=== PATIENT | female | born 1975 | race American Indian/Alaskan Native ===

== ENCOUNTER 2017-06-20 11:38 | Emergency (ER) | payer BC, OTHER ==
--- NOTE | 2017-06-20 12:31 | EDM.PDOC ---
ED HPI GENERAL MEDICAL PROBLEM - General Chief Complaint: Abdominal Pain Stated Complaint: ABDOMINAL PAIN/DIARRHEA Time Seen by Provider: 06/20/17 12:31 Source of Information: Reports: Patient History Limitations: Reports: No Limitations - History of Present Illness INITIAL COMMENTS - FREE TEXT/NARRATIVE: Linda is a pleasant 42yo female presents ambulatory to ED with one week hx of abdominal pain, nausea; transitioning to 5 days of diarrhea and now vomiting x 2 days. She was on her way to [place] for vacation and the stomach pain, around the umbilicus, started. Once arriving to [place] the nausea hit. She then went to a doctor in [place] who prescribed two medications, by looking them up it looks like digestive enzymes and similar to bentyl. She feels that after taking the one similar to digestive enzymes the diarrhea. She does not feel that the other medication helped at all. Advil seems to help the discomfort as well as "not eating" however she does get hungry. No f/c/s, she has been trying to push fluids. No back pain. No urinary symptoms other than "darker" urine and decreased urinary output. Prior to this occurring she was regular with bowel habits, "every other day". No prior abdominal issues or IBS type of symptoms. No food intolerances prior other than milk but states "I know to avoid that". No one else on the trip had any abdominal problems, no exposure to stomach flu or similar problems prior to leaving on her trip. Associated symptoms: headache , worse yesterday. She has been trying to push fluids, has tried peptobismol and tums. Tums helps the heartburn which has started since vomiting. No prior symptoms of heartburn. has had vasectomy so "would be a miracle if I was ". Onset: Gradual (1 week) Duration: Intermittent Location: Reports: Abdomen Quality: Reports: Pressure, Sharp, Stabbing Severity: Moderate Improves with: Reports: Movement Worsens with: Reports: Rest, Other (eating) Associated Symptoms: Reports: Headaches (x 2 days), Nausea/Vomiting. Denies: Chest Pain, Cough, Diaphoresis, Fever/Chills, Loss of Appetite, Shortness of Breath Abdominal Pain Score (Numeric/FACES): 2 - Related Data Allergies Allergy/AdvReac Type Severity Reaction Status Date / Time No Known Allergies Allergy Verified 06/20/17 11:48 Home Meds: Home Meds amLODIPine Besylate [Amlodipine Besylate] 10 mg PO DAILY 06/20/17 [History] Past Medical History Cardiovascular History: Reports: Hypertension [employer] History: Reports: Endocrine/Metabolic History: Reports: Vitamin D Deficiency - Past Surgical History HEENT Surgical History: Reports: Myringotomy w Tube(s) Social & Family History - Family History Family Medical History: Noncontributory - Tobacco Use Smoking Status *Q: Never Smoker - Caffeine Use Caffeine Use: Reports: Coffee - Recreational Drug Use Recreational Drug Use: No ED ROS GENERAL - Review of Systems Review Of Systems: See Below Constitutional: Reports: No Symptoms. Denies: Fever, Chills, Malaise, Weakness HEENT: Reports: No Symptoms Respiratory: Reports: No Symptoms Cardiovascular: Reports: No Symptoms GI/Abdominal: Reports: Abdominal Pain, Diarrhea, Nausea, Vomiting (x 2 days). Denies: Black Stool, Bloody Stool, Constipation, Decreased Appetite, Hematemesis , Hematochezia, Melena : Reports: No Symptoms, Other (decreased UO) Musculoskeletal: Reports: No Symptoms Skin: Reports: No Symptoms Neurological: Reports: No Symptoms Hematologic/Lymphatic: Reports: No Symptoms ED EXAM, GI/ABD - Physical Exam Exam: See Below Exam Limited By: No Limitations General Appearance: Alert, WD/WN, No Apparent Distress, Other (talkative, resting comfortably on stretcher) Eyes: Bilateral: Normal Appearance, EOMI Ears: Normal External Exam, Hearing Grossly Normal Nose: Normal Inspection Throat/Mouth: Normal Inspection, Normal Lips, Normal Teeth, Normal Voice Head: Atraumatic, Normocephalic Neck: Normal Inspection Respiratory/Chest: No Respiratory Distress, Lungs Clear, Normal Breath Sounds Cardiovascular: Normal Peripheral Pulses, Regular Rate, Rhythm, No Edema, No Murmur GI/Abdominal Exam: Soft, No Organomegaly, No Distention, No Mass, Tender ( epitastric and surrounding umbilicus). No: Guarding, Rigid, Rebound, Hepatomegaly, Splenomegaly (Female) Exam: Deferred Rectal (Female) Exam: Deferred Back Exam: Normal Inspection Extremities: Normal Inspection, Normal Capillary Refill Neurological: Alert, Oriented, CN II-XII Intact, Normal Cognition Psychiatric: Normal Affect, Normal Mood Skin Exam: Warm, Dry, Intact Course - Vital Signs Last Recorded V/S: Last Vital Signs Temp 97.4 F 06/20/17 11:49 Pulse 75 06/20/17 11:49 Resp 18 06/20/17 11:49 BP 143/82 H 06/20/17 11:49 Pulse Ox 100 06/20/17 11:49 - Orders/Labs/Meds Orders: Active Orders 24 hr Category Date Time Status Abdomen 2V AP Flat Upright [CR] Stat Exams 06/20/17 14:00 Taken Potassium Chloride [Klor-Con M20] Med 06/20/17 14:24 Once 40 meq PO ONETIME ONE Medication Orders Potassium Chloride (Klor-Con M20) 40 meq PO ONETIME ONE Stop: 06/20/17 14:25 Labs: Laboratory Tests 06/20/17 06/20/17 06/20/17 Range/Units 13:10 13:10 13:10 WBC 5.39 (3.98-10.04) K/mm3 RBC 4.75 (3.98-5.22) M/mm3 Hgb 13.9 (11.2-15.7) gm/L Hct 40.1 (34.1-44.9) % MCV 84.4 (79.4-94.8) fl MCH 29.3 (25.6-32.2) pg MCHC 34.7 (32.2-35.5) g/dl RDW Std Deviation 41.8 (36.4-46.3) fL Plt Count 173 L (182-369) K/mm3 MPV 10.4 (9.4-12.3) fl Neut % (Auto) 41.7 (34.0-71.1) % Lymph % (Auto) 37.3 (19.3-51.7) % [place] % (Auto) 18.2 H (4.7-12.5) % Eos % (Auto) 2.0 (0.7-5.8) Baso % (Auto) 0.6 (0.1-1.2) % Neut # (Auto) 2.25 (1.56-6.13) K/mm3 Lymph # (Auto) 2.01 (1.18-3.74) K/mm3 [place] # (Auto) 0.98 H (0.24-0.36) K/mm3 Eos # (Auto) 0.11 (0.04-0.36) K/mm3 Baso # (Auto) 0.03 (0.01-0.08) K/mm3 Manual Slide Review Normal smear Sodium 139 (136-145) mEq/L Potassium 3.3 L (3.5-5.1) mEq/L Chloride 103 (98-107) mEq/L Carbon Dioxide 26 (21-32) mEq/L Anion Gap 13.3 (5-15) BUN 8 (7-18) mg/dL Creatinine 0.8 (0.55-1.02) mg/dL Est Cr Clr Drug Dosing 89.99 mL/min Estimated GFR (MDRD) > 60 (>60) mL/min BUN/Creatinine Ratio 10.0 L (14-18) Glucose 90 (74-106) mg/dL Calcium 8.7 (8.5-10.1) mg/dL Magnesium 1.8 (1.8-2.4) mg/dl Total Bilirubin 0.2 (0.2-1.0) mg/dL AST 30 (15-37) U/L ALT 32 (14-59) U/L Alkaline Phosphatase 59 (46-116) U/L Total Protein 7.1 (6.4-8.2) g/dl Albumin 3.1 L (3.4-5.0) g/dl Globulin 4.0 gm/dL Albumin/Globulin Ratio 0.8 L (1-2) Urine Color (Yellow) Urine Appearance (Clear) Urine pH (5.0-8.0) Ur Specific [place] (1.005-1.030) Urine Protein (Negative) Urine Glucose (UA) (Negative) Urine Ketones (Negative) Urine Occult Blood (Negative) Urine Nitrite (Negative) Urine Bilirubin (Negative) Urine Urobilinogen (0.2-1.0) Ur Leukocyte Esterase (Negative) Urine RBC (0-5) /hpf Urine WBC (0-5) /hpf Ur Epithelial Cells (0-5) /hpf Urine Bacteria (FEW) /hpf Urine Mucus (FEW) /hpf Urine HCG, Qual (NEGATIVE) H. pylori IgG Antibody Positive H (NEGATIVE) 06/20/17 06/20/17 Range/Units 13:10 13:10 WBC (3.98-10.04) K/mm3 RBC (3.98-5.22) M/mm3 Hgb (11.2-15.7) gm/L Hct (34.1-44.9) % MCV (79.4-94.8) fl MCH (25.6-32.2) pg MCHC (32.2-35.5) g/dl RDW Std Deviation (36.4-46.3) fL Plt Count (182-369) K/mm3 MPV (9.4-12.3) fl Neut % (Auto) (34.0-71.1) % Lymph % (Auto) (19.3-51.7) % [place] % (Auto) (4.7-12.5) % Eos % (Auto) (0.7-5.8) Baso % (Auto) (0.1-1.2) % Neut # (Auto) (1.56-6.13) K/mm3 Lymph # (Auto) (1.18-3.74) K/mm3 [place] # (Auto) (0.24-0.36) K/mm3 Eos # (Auto) (0.04-0.36) K/mm3 Baso # (Auto) (0.01-0.08) K/mm3 Manual Slide Review Sodium (136-145) mEq/L Potassium (3.5-5.1) mEq/L Chloride (98-107) mEq/L Carbon Dioxide (21-32) mEq/L Anion Gap (5-15) BUN (7-18) mg/dL Creatinine (0.55-1.02) mg/dL Est Cr Clr Drug Dosing mL/min Estimated GFR (MDRD) (>60) mL/min BUN/Creatinine Ratio (14-18) Glucose (74-106) mg/dL Calcium (8.5-10.1) mg/dL Magnesium (1.8-2.4) mg/dl Total Bilirubin (0.2-1.0) mg/dL AST (15-37) U/L ALT (14-59) U/L Alkaline Phosphatase (46-116) U/L Total Protein (6.4-8.2) g/dl Albumin (3.4-5.0) g/dl Globulin gm/dL Albumin/Globulin Ratio (1-2) Urine Color Yellow (Yellow) Urine Appearance Clear (Clear) Urine pH 6.5 (5.0-8.0) Ur Specific [place] 1.010 (1.005-1.030) Urine Protein Negative (Negative) Urine Glucose (UA) Negative (Negative) Urine Ketones Negative (Negative) Urine Occult Blood Negative (Negative) Urine Nitrite Negative (Negative) Urine Bilirubin Negative (Negative) Urine Urobilinogen 0.2 (0.2-1.0) Ur Leukocyte Esterase Negative (Negative) Urine RBC Not seen (0-5) /hpf Urine WBC 0-5 (0-5) /hpf Ur Epithelial Cells 0-5 (0-5) /hpf Urine Bacteria Not seen (FEW) /hpf Urine Mucus Not seen (FEW) /hpf Urine HCG, Qual Negative (NEGATIVE) H. pylori IgG Antibody (NEGATIVE) Meds: Medications Generic Name Dose Route Start Last Admin Trade Name Freq PRN Reason Stop Dose Admin Potassium Chloride 40 meq 06/20/17 14:24 Klor-Con M20 PO 06/20/17 14:25 ONETIME ONE Discontinued Medications Generic Name Dose Route Start Last Admin Trade Name Freq PRN Reason Stop Dose Admin Famotidine 20 mg 06/20/17 12:44 06/20/17 13:04 Pepcid IVPUSH 06/20/17 12:45 20 mg ONETIME ONE Administration Sodium Chloride 1,000 mls @ 999 mls/hr 06/20/17 12:44 06/20/17 13:04 Normal Saline IV 06/20/17 13:44 999 mls/hr ONETIME ONE Administration - Re-Assessments/Exams Free Text/Narrative Re-Assessment/Exam: 06/20/17 12:56 Patient has had one week of abdominal pain and nausea, progressing with diarrhea 5 days ago then vomiting x 2 days. Symptoms started prior to leaving on vacation for [facility]. While in [place] she went to the doctor there and was prescribed 2 medications, similar to digestive enzymes and bentyl. She thinks diarrhea worsened after taking digestive enzymes x 2 days- she stopped taking the medications at that point. Symptoms now seem to be worse with eating and if laying down. She has had heartburn since vomiting started- relieved by Tums. Will obtain CBC, CMP, UA and h.pylori. UPT- if negative a 2 view abdominal film. She will receive 1L NS via IV and 20mg pepcid IVP. Free Text/Narrative Re-Assessment/Exam: 06/20/17 14:25 Labs reviewed: Potassium of 3.3; will give replacement with 40meq PO x 1. Otherwise CBC and CMP essentially WNL, plt slightly low at 173. H. Pylori serum is +. Rx for clarithromycin 500mg PO BID x 10 days, amoxicilling 1gm BID x 10 days and omeprazole 20mg BID x 1 month. Will recommend f/up with PCP in 2 weeks for recheck. Probiotic daily. Push fluids. Departure - Departure Time of Disposition: 14:26 Disposition: Home, Self-Care 01 Clinical Impression: Helicobacter pylori (H. pylori) infection Abdominal pain Qualifiers: Abdominal location: generalized Qualified Code(s): R10.84 - Generalized abdominal pain - Discharge Information Instructions: Abdominal Pain, Adult, [id number], Gastritis, Adult, Easy-to- Read, Helicobacter Pylori Antibodies Test Referrals: PCP,None [Ordering Only Provider] - Forms: ED Department Discharge Additional Instructions: Your H.Pylori antibiody test was positive today. I am treating you for H. Pylori infection with triple medication treatment. Other labs that were abnormal include mildly low potassium of 3.3 Push fluids Take medications as prescribed; 2 antibiotics and antacid treatment for h.pylori Recommend follow up with your PCP within 2 weeks for a recheck. - My Orders Last 24 Hours: My Active Orders 06/20/17 14:00 Abdomen 2V AP Flat Upright [CR] Stat 06/20/17 14:24 Potassium Chloride [Klor-Con M20] 40 meq PO ONETIME ONE - Assessment/Plan Last 24 Hours: My Active Orders 06/20/17 14:00 Abdomen 2V AP Flat Upright [CR] Stat 06/20/17 14:24 Potassium Chloride [Klor-Con M20] 40 meq PO ONETIME ONE
[2017-06-20] MEDS ORDERED: Famotidine 20 MG/2 ML SDV IVPUSH ONE (12:44)
[2017-06-20] MEDS ORDERED: Sodium Chloride 0.9% 1,000 ML IV ONE (12:44)
[2017-06-20] MEDS ORDERED: Potassium Chloride 20 MEQ Tab.ER PO ONE (14:24)
--- NOTE | 2017-06-21 07:32 | CR ---
Abdomen: Supine and upright views of the abdomen were obtained. Comparison: No previous study. Scattered gas within nondilated small bowel is seen. This is felt to be within normal limits. No free air is seen. Bony structures are unremarkable. No abnormal calcifications are seen. Impression: 1. Nonspecific two-view abdominal study. Diagnostic code #1
== END 2017-06-20 15:02 | disposition home or self-care (01) ==
LOC: JD.ED 11:38
DX: A04.8 Other specified bacterial intestinal infections (principal); I10 Essential (primary) hypertension; Z79.899 Other long term (current) drug therapy
CPT/HCPCS: 36415; 74019; 80053; 81001; 81025; 83735; 85025; 86677; 96361; 96374; 99284; A9270; J7040